=== PATIENT | male | born 1945 | race Caucasian/White ===

== ENCOUNTER → 2016-08-02 | Outpatient (CLI) | payer MEDICARE, OTHER ==
[~2016-08-02] MED LIST: ASPIRIN LO-DOSE81 MG PO; BETAMETHAS45 GM/TUBE TOP; CELEBREX200 MG PO; CLINDAMYCIN 1%60 ML TOP; COLACE100 MG PO; CORDARONE,PACE200 MG PO; CPAP INH; DILAUDID 2MG(HYD2 MG PO; FEOSOL325 MG PO; FLEXERIL10 MG PO; KEFLEX500 MG PO; LASIX40 MG PO; LIPITOR40 MG PO; LOPRESSOR50 MG PO; MAGOX 400400 MG PO; MIRALAX17 GM PO; MULTI VITAMIN1 EACH PO; NEURONTIN800 MG PO; NITROSTAT0.4 MG SL; NORCO 10-325 T1 EACH PO; PROTONIX40 MG PO; SENOKOT S (S1 TABLET PO; TYLENOL EXTRA500 MG PO; VENLAFAXINE HC225 MG PO; VITAMIN E400 UNI2 PO; VOLTAREN75 MG PO; XARELTO10 MG PO; XARELTO20 MG PO
== END | disposition disaster alternative care site (69) ==
LOC: GRAD 12:00
DX: R31.29 Other microscopic hematuria (principal)